=== PATIENT | female | born 1950 | race Caucasian/White ===

== ENCOUNTER 2018-02-24 07:05 | Day surgery (SDC) | payer OTHER ==
[~2018-02-24] VITALS: Ht 175.3 cm; Wt 97.1 kg
--- NOTE | ~2018-02-24 | OR ---
[facility] [address] [place], [place] [address] Draft DATE OF OPERATION: 02/24/2018 SURGEON: Rolando Cisse MD PREOPERATIVE DIAGNOSIS: Displaced left distal radius fracture. POSTOPERATIVE DIAGNOSIS: Displaced left distal radius fracture. PROCEDURE PERFORMED: Closed reduction and percutaneous pinning, left distal radius. SILK SCREEN OPERATOR: Gayle Bay PA-C. Gayle was present in critical positioning and arm holding during the pinning as well as cast application. ANESTHESIA: General. BLOOD LOSS: None. IMPLANTS: Four 1.6 mm K-wires. BRIEF HISTORY: Krystal is a 67-year-old female, who suffered a ground level fall. She had extensive swelling and was seen in the clinic and scheduled for surgery after discussion of risks and benefits. She was to get her arm elevated and get the swelling down, which she did quite nicely. Today once again, risks and benefits were discussed and she elected to proceed. DESCRIPTION OF PROCEDURE: Once consent was obtained, she was taken to the operating room. After adequate anesthesia, she was placed on operating table. All downside pressure points well padded. The arm was placed in well-padded proximal arm tourniquet and the arm was prepped and draped in the standard sterile fashion. Closed reduction was performed. PATIENT NAME: KRYSTAL RIGGS OPERATIVE REPORT DATE OF : 48 REPORT #: [id number] PHYSICIAN: ROLANDO CISSE MD PCP: NO PRIMARY CARE PHYSICIAN REPORT IS CONFIDENTIAL AND NOT TO BE RELEASED WITHOUT AUTHORIZATION [facility] [address] [place] [address] Draft Excellent reduction was obtained and was elected to go ahead and proceed with pinning rather than ORIF. The first pin was introduced from the distal radial styloid and advanced across the fracture engaging the body of the radius. Good purchase was obtained. Two pins were placed dorsally and two planes were placed radially, fixating the fracture quite nicely. The pins were bent and cut, and final radiograph showed good reduction and pin placement. Pin lengths were not too long. The pins were dressed with sterile gauze. Sterile cast padding. She was placed in a radial gutter splint with 10 degrees of flexion. She tolerated the procedure well. All sponge, needle, and instrument counts were correct. Rolando Cisse MD BA/JESUS /[id number] Copies: ~ PATIENT NAME: KRYSTAL RIGGS JANY OPERATIVE REPORT DATE OF : 48 REPORT #: [id number] PHYSICIAN: ROLANDO CISSE MD PCP: NO PRIMARY CARE PHYSICIAN REPORT IS CONFIDENTIAL AND NOT TO BE RELEASED WITHOUT AUTHORIZATION
[~2018-02-24 07:05] MED LIST: NORCO 5-325 TA1 EACH PO
[2018-02-24] MEDS ORDERED: HYDROCODON-ACE1 EA11 PO (09:43)
--- NOTE | 2018-02-24 10:26 | NUR ---
02/24/18 1026 Dinah Demarcozabeth 0941- PT ARRIVES TO PACU RESPONSIVE TO VOICE. DOES NOT FOLLOW COMMANDS. PT ON 6L VIA MASK. OXYGEN SAT HIGH 90'S TO 100% ON THIS. CMS INTACT. PT'S LEFT WRIST ELEVATED ON A PILLOW. 0945- PT REPORTS SHE IS IN 8/10 PAIN. PT REPORTS HER FINGERS ARE NUMB. AMANDA, KATE AT THE BEDSIDE PUTTING ORDERS IN FOR PAIN MANAGEMENT. OXYGEN TURNED OFF. OXYGEN SAT HIGH 90'S TO 100% ON RA. 0955- FENTANYL AND TORADOL PROVIDED TO PT FOR 8/10 PAIN. PT ANXIOUS AND HOLDING HER BREATH. EDUCATED PT TO TAKE DEEP BREATHS IN THROUGH HER NOSE AND OUT THROUGH HER MOUTH. PT IS ABLE TO FOLLOW THESE INSTRUCTIONS. 0958- VERSED 1MG GIVEN PT REMAINS ANXIOUS AND PAINFUL. PT FREQUENTLY MOANING AND REMINDED TO NOT HOLD HER BREATH. 1007- PT REPORTS HER PAIN IS NOT GETTING ANY BETTER. PT REMAINS ANXIOUS AND MOANING THAT SHE IS IN PAIN. REMINDED TO TAKE DEEP BREATHS. FENTANYL GIVEN. 1013- PT CONTINUOUS TO REPORT HER PAIN IS NOT GETTING BETTER. RATES HER PAIN A 9/10. 1 MG OF VERSED GIVEN. CMS REMAINS INTACT WITH THE EXCEPTION OF THE NUMBNESS TO HER FINGERS DUE TO THE BLOCK. 1019- PT CALM AT THIS TIME. OXYGEN SAT DROPPED TO 78% ON RA. PT RESPONSIVE TO VERBAL STIMULI AND INSTRUCTED TO TAKE DEEP BREATHS. OXYGEN APPLIED AT 6L VIA MASK. PT WAS ABLE TO FOLLOW INSTRUCTIONS AND OXYGEN SAT INCREASED TO THE HIGH 90'S. PT PLACED ON 2L VIA OXYMASK.
--- NOTE | 2018-02-24 10:56 | NUR ---
PATIENT ARRIVED FROM PACU. PATIENT INITIALLY ON 2L VIA MASK FOR 99% SATS. PATIENT CURRENTLY ON 1L FOR 98% SATS. PATIENT RATES LEFT WRIST PAIN 7/10, ENDORSES NUMBNESS TO WRIST AREA, TINGLING TO FINGERS, PATIENT CAN MOVE FINGERS, FINGERS ARE PINK AND WARM. PATIENT IS SLEEPY, WARM BLANKENT PROVIDED.
--- NOTE | 2018-02-24 11:36 | NUR ---
PATIENT ON ROOM AIR WITH 98% SATS. PATIENT IS SITTING UP AND EATING CRACKERS, SIPS OF WATER. PATIENT RATES 6/10 "DISCOMFORT" TO LEFT WRIST AND THIS IS HER BASELINE PAIN SCORE. PLAN TO HAVE PO INTAKE AND PO PAIN PILL. LEFT WRIST DRESSING IS CDI, CMS INTACT. PATIENT CALL SON TO GIVE HIM AN UPDATE.
--- NOTE | 2018-02-24 11:42 | NUR ---
MET WITH PT BEFORE SURGERY. NEW TO AREA AND INITIAL RIDE DID NOT SHOW. SON UNABLE TO GET OFF FROM WORK TO BE HERE-THIS UPSET PT SOME. LET HER VENT SOME, ASSURED HER THAT [facility] WOULD BE HERE FOR HER AND MAKE SURE SHE GOT HOME SAFELY. PT DID REQUEST PRAYER, AND THANKED ME FOR THE TIME. WILL FOLLOW NEEDED
--- NOTE | 2018-02-24 12:52 | NUR ---
PT HAS RETURNED FROM PACU-SHE HAS HAD JELLO AND CRACKERS AND HAS BEEN ABLE TO KEEP THEM DOWN. REASSURED HER NOT TO WORRY ABOUT GETTING HOME. IF HER RIDE IS UNABLE, [facility] WILL ARRANGE TRANSPORTATON. WILL CONTINUE TO FOLLOW NEEDED
--- NOTE | 2018-02-24 12:53 | NUR ---
PATIENT HAS TOLERATED PO INTAKE WELL, GIVEN ONE NORCO FOR 4/10 LEFT ARM PAIN. PATIENT DENIES NEED TO VOID AND INDICATES THAT SHE ONLY VOIDS 2-3 PER DAY ON THE USUAL. LEFT ARM DRESSING IS CDI. PLAN FOR PATIENT TO GO HOME AT APPROXIMATELY 2PM
--- NOTE | 2018-02-24 13:35 | NUR ---
PATIENT DRESSED, UP TO VOID, DENIES PAIN. RIGHT HAND IV D/C'D WITH CATHETER INTACT. LEFT ARM IN SLING.
--- NOTE | 2018-02-24 14:37 | NUR ---
1420 PATIENT GIVEN WHEELCHAIR RIDE TO FRONT DOOR. PATIENT PLACED SELF IN CAR AND FRIEND TRANSPORTING PATIENT HOME.
== END 2018-02-24 14:20 | disposition home or self-care (01) ==
LOC: DS 07:05
PROVIDERS: Specialist
PROC: 0PSJ34Z Reposition Left Radius with Internal Fixation Device, Percutaneous Approach (ICD-10-PCS; principal; 2018-02-24 08:15)
DX: S52.502A Unspecified fracture of the lower end of left radius, initial encounter for closed fracture (principal); Z88.0 Allergy status to penicillin
CPT/HCPCS: 01830; 64417; 73100; 76942; J0690; J1100; J1885; J2250; J2704; J2795; J3010; J7120

== ENCOUNTER 2021-08-11 10:17 | Emergency (ER) | payer MEDICARE ==
[~2021-08-11] VITALS: Ht 175.3 cm; Wt 97.1 kg
[~2021-08-11 10:17] MED LIST changes: +HYDROCODON-ACE1 EA11 PO
[2021-08-11] MEDS ORDERED: FUROSEMIDE20 MG PO (10:30)
[2021-08-11] MEDS ORDERED: URSODIOL300 MG PO (10:31)
[2021-08-11] MEDS ORDERED: BENZONATATE100 MG PO (10:31)
[2021-08-11] MEDS ORDERED: ONDANSETRON ODT8 MG PO (14:42)
[2021-08-11] MEDS ORDERED: FLOMAX0.4 MG PO (14:42)
[2021-08-11] MEDS ORDERED: HYDROCODON-ACE1 EA10 PO (14:42)
== END 2021-08-11 15:00 | disposition home or self-care (01) ==
LOC: ED 10:17
DX: N13.2 Hydronephrosis with renal and ureteral calculous obstruction (principal); Z88.0 Allergy status to penicillin; Z79.899 Other long term (current) drug therapy
CPT/HCPCS: 74176; 81001; 99284-25

== ENCOUNTER 2022-06-18 06:45 | Inpatient (IN) | payer MEDICARE ==
[~2022-06-18] VITALS: Ht 175.3 cm; Wt 99.1 kg
[~2022-06-18 06:45] MED LIST changes: +BENZONATATE100 MG PO; +CITRACAL-D3 MA1 EACH PO; +FLOMAX0.4 MG PO; +FUROSEMIDE20 MG PO; +HYDROCODON-ACE1 EA10 PO; +ONDANSETRON ODT8 MG PO; +ONE DAILY WITH1 EACH PO; +URSODIOL300 MG PO
[2022-06-18] MEDS ORDERED: CELEBREX200 MG PO (07:06)
[2022-06-18] MEDS ORDERED: OXYCODONE HCL5 MG PO (10:24)
[2022-06-18] MEDS ORDERED: TRAMADOL HCL50 MG PO (10:24)
[2022-06-18] MEDS ORDERED: GABAPENTIN300 MG PO (10:24)
[2022-06-18] MEDS ORDERED: XARELTO10 MG PO (10:24)
[2022-06-18] MEDS ORDERED: HEALTHYLAX17 GM PO (10:25)
--- NOTE | 2022-06-18 10:42 | NUR ---
06/18/22 1042 Peg Demarco 1033- PT ARRIVES TO PACU EASILY AROUSABLE TO VOICE. PT REPORTS HER THROAT IS SORE. DENIES NAUSEA. RESP EVEN AND UNLABORED. OXYGEN SAT HIGH 90'S TO 100% ON 6L VIA MASK. 1038- PT IS WANTING TO BEND HER RIGHT KNEE SHE IS REPORTING PAIN BEHIND HER KNEE AND CALF. DR. TAYLOR DOES NOT WANT THE PT PUTTING A BEND IN HER KNEE. 1040- CLAY HOUSE WORKER AT THE BEDSIDE TALKING WITH THE PT. 1041- PT SIPPING ON ICE WATER. PT REPORTS THIS HELPS HER THROAT SORENESS.
--- NOTE | 2022-06-18 11:35 | NUR ---
PT BACK TO DS ROOM, AWAKE AND ALERT DENIES PAIN AND NAUSEA. SPINAL AT KNEE LEVEL. CRYO CUFF TO RT KNEE. WARM BLANKETS GIVEN CALL LIGHT WITHIN REACH. ON Q PUMP PATENT.
--- NOTE | 2022-06-18 12:22 | NUR ---
PT REPORTS PAIN TO BACK OF RT KNEE / SHE STATES ITS VERY UNCOMFORTABLE AND WOULD LIKE PAIN MEDS FOR IT. ULTRAM GIVEN.
--- NOTE | 2022-06-18 13:27 | NUR ---
PT SATS DROPPED TO 85% WHEN SHE FELL ASLEEP. O2 PLACED VIA NASAL CANNULA AT 2L
--- NOTE | 2022-06-18 13:49 | NUR ---
PT SLEEPING SOUNDLY, DROPPED O2 TO 1L, SATS AT MAINTAINING 96%
--- NOTE | 2022-06-18 14:07 | NUR ---
PT AWAKE AND ALERT O2 TURNED OFF SATS MAINTAINED AT 96% ON ROOM AIR.
--- NOTE | 2022-06-18 14:33 | NUR ---
PT SAT AT EDGE OF BED WITH FEET DANGLING. DENIES PAIN. SHE REPORTS SHE FEELS "WHOOZY" WITH MILD NAUSEA. HELPED HER BACK TO LAYING DOWN POSITION. REPORTS "WHOOZY" IS GOING AWAY.
--- NOTE | 2022-06-18 15:25 | NUR ---
1515 NANETTE FROM PHYSICAL THERAPY HERE TO WORK WITH PT, SAT PT AT EDGE OF BED WITH FEET DANGLING PT REPORTS SHE IS "WHOOZY" AGAIN AND FEELS NAUSEOUS. CALLED DR TAYLOR HE ORDERED ZOFRAN ODT 8MG GIVEN TO PT, NANETTE HELPED BACK INTO BED. PT REPORTS SHE IS SEEING VIVID BRIGHT COLORS WHEN SHE CLOSES HER EYES.
--- NOTE | 2022-06-18 15:48 | NUR ---
PT SATS DROPPED TO 87% ON ROOM AIR. O2 ON 2L VIA NASAL CANNULA.
--- NOTE | 2022-06-18 15:52 | NUR ---
PT REPORT NAUSEA IS MUCH BETTER BUT SHE IS HAVING TROUBLE KEEPING HER EYS OPEN. DENIES PAIN.
--- NOTE | 2022-06-18 16:05 | NUR ---
SPOKE WITH DR TAYLOR TO NOTIFY HIM OF PT BEING TO SLEEPY TO KEEP EYES AND PT NEEDING 2L OF O2 TO KEEP SATS UP. HE ADVISED TO HOLD GABAPENTINE, AND TO CALL HIM IF SHE WAS GOING TO BE ADMITTED.
--- NOTE | 2022-06-18 16:45 | NUR ---
1630 HARLEY PHYSICAL THERAPIST IN ROOM, PT MORE AWAKE CONTINUE TO COMPLAIN OF FEELING WHOOZY AND LIGHT HEADED. IV SALINE LOCKED, 2000ML OF FLUID TOTAL GIVEN TODAY. 800ML GIVEN IN DAYSURGERY. HARLEY HELPED PT DRESS, PT WAS ABLE TO WALK TO WHEELCHAIR OUTSIDE HER ROOM, SAT IN WHEELCHAIR REPORTS FEELING NAUSEOUS, SHE VOMITED 200ML OF RED COLORED FLUID SHE ATE RED JELLO EARLIER TODAY. SHE REPORTS FEELING A LITTLE BETTER AFTER VOMITING. HARLEY TOOK HER FOR PHYSICAL THERAPY.
--- NOTE | 2022-06-18 17:42 | NUR ---
1700 MYRNA REPORTS THAT SHE DID NOT PASS PHYSICAL THERAPY, SHE IS NOT STEADY ENOUGH TO STAND OR WALK ON HER OWN, SHE WAS ABLE TO VOID ABOUT 100ML OF CLEAR YELLOW URINE. PT DRY HEAVING WHILE TUCKING HER BACK INTO BED. CALLED DR TAYLOR TO INFORM HIM HE GAVE ZOFRAN ORDERS 4MG Q8HRS.
--- NOTE | 2022-06-18 18:03 | NUR ---
PT HAD ANOTHER DRY HEAVING EPISODE DID NOT BRING ANYTHING UP. SHE REPORTS HE IS VERY DIZZY AND TIRED. SHE IS STILL HAVING TROUBLE KEEPING HER EYES.
--- NOTE | 2022-06-18 19:01 | NUR ---
DR TAYLOR AT BEDSIDE PT AWAKE AND ALERT DENIES PAIN AND NAUSE,,
--- NOTE | 2022-06-18 19:16 | NUR ---
1900 O2 PLACED BACK ON PT PER DR TAYLOR, HER SATS CONTINUE TO DROP WHEN SHE FALLS ASLEEP.
--- NOTE | 2022-06-18 20:05 | NUR ---
PT TRANSFERED TO MED SURG
--- NOTE | 2022-06-18 20:21 | NUR ---
0815 PT TRANSFERED TO MED SURG AWAKE AND ALERT, ORIENTED X4. SHE DENIES PAIN OR NAUSEA. PT WAS ABLE TO TRANSFER TO MED SURG BED WITH MINIMAL ASSIST. REPORT GIVEN TO TATIANA HAN.
--- NOTE | 2022-06-18 21:18 | NUR ---
pt ARRIVES TO MS FLOOR VIA STRETCHER. ABLE TO MOVE SELF TO HOSPITAL BED. SURGERY RN WITH pt. BEDSIDE REPORT RECEIVED FROM GUILLE GIL. pt DENIES ANY PAIN. CLARICE HOSE, VFPs, CRYO CUFF IN PLACE ON RIGHT KNEE. DRESSING CDI. RIGHT LEG EDEMETOUS. SCHEDULED MEDICATIONS ADMINISTERED WNL. pt DENIES NAUSEA. TOLERATING CRACKERS, WATER, SPRITE. SANDWICH BOX PROVIDED REQUESTED. ASSESSMENT COMPLETE. CALL LIGHT IN REACH. BED ALARM ON. pt IS ALERT AND ORIENTED TO ALL, CONTINUES TO FEEL LIKE THINGS ARE MOVING IN ROOM, HEAD IS "FEELING FUZZY". DENIES NEED TO VOID.
--- NOTE | 2022-06-18 22:30 | NUR ---
CALL LIGHT ANSWERED. pt C/O PAIN AT IV SITE. IV FLUSHED, PAINFUL. D/C'D WNL. TWO ATTEMPTS AT NEW IV START BY THIS RN, SEALER OPERATOR RN IN, IV PLACED IN RIGHT AC, 20 GAUGE. IV SITE FLUSHES WNL, BRISK BLOOD RETURN. CALL LIGHT IN REACH. pt CONTINUES TO DENY TOILETING NEEDS. PO FLUIDS ENCOURAGED. BED ALARM ON.
--- NOTE | 2022-06-19 00:15 | NUR ---
pt SLEEPING, AWAKENS TO VOICE. 2PA WITH FWW TO PIVOT TO BSC FOR VOID. pt LOSES BALANCE BRIEFLY WHEN ATTEMPTING TO PULL DOWN UNDERWEAR, QUICK, IMPULSIVE WITH MOVEMENTS. pt ABLE TO FOLLOW COMMANDS. UNABLE TO VOID. BACK IN BED, TRANSFERS SELF INTO HOSPITAL BED. BLADDER SCAN FOR 365 MLS. pt DRINKING WATER AT THIS TIME. IVF INFUSING WNL. pt DOES NOT FEEL URGE TO VOID. CALL LIGHT IN REACH. BED ALARM ON.
--- NOTE | 2022-06-19 03:40 | NUR ---
pt SLEEPING, AWAKENS TO VOICE. SCHEDULED MEDICATIONS ADMINISTERED. pt DENIES PAIN. STATES URGE TO VOID. 2PA TO PIVOT WITH FWW TO BSC, pt UNABLE TO VOID. BACK IN BED. BLADDER SCAN 558 MLS. ASSESSMENT COMPLETE. VSS. pt IS ALERT, DENIES ANY "DIZZINESS". ATTEMPT TO CALL MD, MESSAGE LEFT ON CELL PHONE. CALL LIGHT IN REACH. pt ENCOURAGED TO DRINK WATER. ABLE TO FINISH 225 MLS AT THIS TIME.
--- NOTE | 2022-06-19 05:11 | NUR ---
PHONE CALL FROM MD, TELEPHONE ORDERS TO NOTIFY IF >1000 MLS IN BLADDER. NO ADDITIONAL ORDERS.
--- NOTE | 2022-06-19 06:12 | NUR ---
CALL LIGHT ANSWERED. 2PA WITH GAIT BELT. pt ABLE TO VOID 200 ML CONCENTRATED URINE. pt REQUIRING DIRECTION FOR SAFE AMBULATION, GETTING UP AND DOWN OFF BSC. BACK IN BED. PO FLUIDS PROVIDED. IVF INFUSING WNL. CRYO CUFF IN PLACE. FOOT PUMPS ON. CALL LIGHT AND PERSONAL SUPPLIES IN REACH.
--- NOTE | 2022-06-19 07:30 | NUR ---
THIS RN ROUNDING WITH ORTHO PA AT BEDSIDE. PT STATES UNDERSTANDING OF POC TO ACHIEVE DC CRITIERA AND DC HOME TODAY. PT STATES SHE HAS BEEN URINATING AND EATING WITHOUT DIFFICULTY, PAIN RATING 0/10.
--- NOTE | 2022-06-19 09:15 | NUR ---
SCHEDULED MEDS ADMINISTERED. PT SITTING ON EDGE OF BED WORKING WITH PT. 100% OF BREAKFAST EATEN.
--- NOTE | 2022-06-19 09:50 | NUR ---
PT TRANSFERED FROM CHAIR TO SIDE OF BED WITH RN AND LEAD SOLUTIONS ARCHITECT AT BEDSIDE. CYRO CUFF FILLED AND PLACED ON KNEE. PT TALKING TO FAMILY ON PHONE AND UPDATED. DRESSING CDI AND PT REPORTS 1/10 PAIN ON KNEE CAP. CALL LIGHT AND BEDSIDE TABLE WITHIN REACH. PT DENIES CONCERNS, PT SITTING ON EDGE OF BED.
--- NOTE | 2022-06-19 10:33 | NUR ---
MED REC COMPLETE
--- NOTE | 2022-06-19 11:00 | NUR ---
THIS RN UPDATED BY PROPELLER DRIVEN AIRPLANE MECHANIC THAT XRAY OF SURGICAL SITE INDICATES DISLOCATION AND ORTHO PA WILL ASSESS PT AT BEDSIDE FOR REDUCTION. EMPLOYMENT CASE MANAGER UPDATED. PT STILL REPORTS NO INCREASING PAIN, CRYO CUFF ON SITE. SCDS IN PLACE.
--- NOTE | 2022-06-19 11:26 | NUR ---
THIS RN ANSWERS CALL LIGHT TO FIND PT ON FLOOR WITH PHYSICAL THERAPY HARLEY STANDING NEXT TO PT. HARLEY REPORTS PT R KNEE KNEE "BUCKLED" WHEN AMBULATING WITH FWW. PT LIFTED FROM FLOOR USING GAIT BELT WITH PROM BURN OFF OPERATOR AND PT HELP. PT DENIES INCREASED PAIN OR INJURY. ASSESSMENT BENIGN FOR INJURY - R KNEE BANDAGE UNCHANGED FROM PREVIOUS AM ASSESSMENT. POST FALL VS OBTAINED, WNL. PT WEARING HOSPITAL PROVIDED NON SLIP SOCKS, ALL FALL PREVENTION STRATAGIES ALREADY IMPLOYED BEFORE FALL. HARLEY FURTHER EVALUATES PT IN PT ROOM VIA WHEELCHAIR TRANSPORT. LICENSED MARRIAGE AND FAMILY THERAPIST NOTIFIED. HARLEY TO NOTIFY ORTHO PA BY PHONE.
--- NOTE | 2022-06-19 12:18 | NUR ---
RN ROUNDING WITH ORTHO PA - PT UPDATED ON POC TO RETURN TO OR TOMORROW TO CORRECT KNEE CAP DISPLACEMENT. PT DENIES QUESTIONS AT THIS TIME. PT EATING LUNCH WITH GOOD APPETITE.
--- NOTE | 2022-06-19 13:00 | NUR ---
Received call from Gayle Lassiter Pt will return to surgery for dislocated patella. Pt will be hospitalized 2-3 more days and will need a SNF on dc as she will be nwb. Chart faxed to [facility].
--- NOTE | 2022-06-19 13:37 | NUR ---
PT ALERT, ORIENTED AND SITTING UP IN BED WATCHING TV. PT SEEMED PLEASED I STOPPED. NEEDED TO TALK, FEELING GUILTY THAT SHE NEEDS TO RELY ON HELP. PT HAD HOPED FAMILY WOULD BE AVAILABLE. SHE ALSO SHARED ABOUT CONCERN FROM A FALL FOLLOWING SURGERY AND WAITING FOR X-RAY RESULTS. GAVE PT ENCOURAGEMENT ALSO PROVIDED RESOURCES ON DEALING WITH GRIEF AND LOSS. PTS' LUNCH DELIVERED AND GAVE BLESSING. WILL FOLLOW
--- NOTE | 2022-06-19 14:11 | NUR ---
WATCHING TV.PATIENT STATES THE PLAN OF CARE IS TO GO TO [facility] FOR REHAB AND TO RETURN HOME WHEN READY FOR DISCHARGE.
--- NOTE | 2022-06-19 14:13 | NUR ---
rn rounding on pt - sitting up in bed talking on phone with friend at bedside.
--- NOTE | 2022-06-19 17:22 | NUR ---
Rn in room to administer schedule meds - pt resting in bed with friend at side. Assessment complete - no changes. Surgical site remains unchanged with no new drainage on bandage, cryo cuff in place.
--- NOTE | 2022-06-19 17:56 | NUR ---
PATIENT SITTING UP IN BED. VITALS AND I&O'S CHARTED. CRYO FILLED. CALL LIGHT IN REACH. NO FURTHER NEEDS AT THIS TIME.
--- NOTE | 2022-06-19 18:37 | NUR ---
RN IN ROOM TO ADMINISTER SCHEDULED MEDICATIONS. PT RESTING IN BED VISITING WITH MACHINE SHORTHAND TEACHER. PT DENIES NEEDS AT THIS TIME. DENIES PAIN. CALL LIGHT IN REACH.
--- NOTE | 2022-06-19 19:05 | NUR ---
RECEIVED REPORT FROM ARIELLA HAN. PT RESTING IN BED AND REPORTS PAIN 1/10 AT THIS TIME. CRYO WRAP IN PLACE ON RT KNEE. RAMIRO WRAP IN PLACE OVER DRESSING WHICH HAS SMALL AMOUNT OF OLD SS SHADOWING. SWELLING AND SLIGHT REDNESS PRESENT BUT NO CHANGE PER DAY SHIFT GUILLE KRISHNAN. FOOT SCD'S IN PLACE. PUREWICK IN PLACE. CALL LIGHT WITHIN REACH, NO FURTHER NEEDS AT THIS TIME.
--- NOTE | 2022-06-19 20:15 | NUR ---
IN PT ROOM FOR SLUDGE FILTRATION ATTENDANT, ASSESSMENT, AND VS. VSS. PT REPORTS PAIN 1/10 AT THIS TIME. INCISION SITE DRESSING HAS SMALL AMOUNT OF SS DRAINAGE THAT IS OLD SHADOWING. THERE IS SOME SWELLING AND WARMTH ON THE LFT SIDE OF THE KNEE THAT PER ARIELLA IS UNCHANGED FROM PREVIOUS ASSESSMENT. PT REPORTS NO NAUSEA, N/T, DIZZINESS, OR SOB AT THIS TIME. PT IS ON BEDREST, PUREWICK IN PLACE AND SUCTIONING APPROPRIATELY. GOWN PROVIDED AND PERSONAL SHIRT NOW IN GREEN BAG IN CLOSET. FEET SCD'S IN PLACE. RAMIRO WRAP AND CRYO WRAP IN PLACE ON RT KNEE. CALL LIGHT WITHIN REACH, NO FURTHER NEEDS AT THIS TIME. PT WILL BE NPO AT MIDNIGHT, PT IS AWARE OF THIS AND UNDERSTANDS PLAN OF CARE AT THIS TIME.
--- NOTE | 2022-06-19 22:00 | NUR ---
PT REPORTS PAIN 2/10 IN RT KNEE AND REQUESTS PRN PAIN MEDICATION. PRN OXY GIVEN AT THIS TIME (SEE EMAR). PT REPORTS NO NAUSEA OR N/T. WARM BLANKET PROVIDED. CALL LIGHT WITHIN REACH, NO FURTHER NEEDS.
--- NOTE | 2022-06-19 23:47 | NUR ---
IN PT ROOM TO REMOVE LIQUIDS D/T NPO STATUS. PT IS RESTING W/EYES CLOSED. RESPIRATIONS ARE EVEN AND UNLABORED, NO SIGNS OF DISTRESS. CALL LIGHT WITHIN REACH. IV FLUIDS RUNNING DIRECTED. CRYO WRAP RUNNING DIRECTED.
--- NOTE | 2022-06-20 01:37 | NUR ---
PT RESTING W/EYES CLOSED. RESPIRATIONS ARE EVEN AND UNLABORED, NO SIGNS OF DISTRESS. CALL LIGHT WITHIN REACH.
--- NOTE | 2022-06-20 02:27 | NUR ---
PT RESTING W/EYES CLOSED. RESPIRATIONS ARE EVEN AND UNLABORED, NO SIGNS OF DISTRESS. CALL LIGHT WITHIN REACH.
--- NOTE | 2022-06-20 03:24 | NUR ---
PT RESTING W/EYES CLOSED. RESPIRATIONS ARE EVEN AND UNLABORED, NO SIGNS OF DISTRESS. CALL LIGHT WITHIN REACH. HEELS ELEVATED, FOOT SCD'S IN PLACE, CRYO WRAP IN PLACE, PT APPEARS COMFORTABLE AT THIS TIME. IV FLUIDS INFUSING DIRECTED.
--- NOTE | 2022-06-20 03:58 | NUR ---
PT RESTING IN BED W/EYES CLOSED. RESPIRATIONS ARE EVEN AND UNLABORED, NO SIGNS OF DISTRESS. PT APPEARS COMFORTABLE AT THIS TIME. CALL LIGHT WITHIN REACH.
--- NOTE | 2022-06-20 05:07 | NUR ---
PT RESTING W/EYES CLOSED. RESPIRATIONS ARE EVEN AND UNLABORED, NO SIGNS OF DISTRESS. CALL LIGHT WITHIN REACH. IV FLUIDS INFUSING DIRECTED. PT APPEARS COMFORTABLE AT THIS TIME.
--- NOTE | 2022-06-20 06:07 | NUR ---
IN PT ROOM FOR ASSESSMENT, VS, I/O'S. NO NEW SHADOWING ON DRESSING FOR KNEE INCISION. ABD PAD W/RAMIRO WRAP IN PLACE. CRYO WRAP REFILLED W/FRESH ICE AND IN PLACE ON RT KNEE. THERE IS SWELLING ON BOTH SIDES OF THE KNEE AND WARMTH TO LFT SIDE OF RT KNEE. PT REPORTS PAIN THIS MORNING AT 0/10 AND NO NAUSEA, N/T, DIZZINESS OR SOB. NO ACUTE CHANGES FROM PREVIOUS ASSESSMENT. IV FLUIDS INFUSING DIRECTED, IV SITE WNL. PT IS A&O X4. ON-Q PUMP INTACT. CONSENT SIGNED, THIS RN WITNESS, LR W/STRAIGHT TUBING IN ROOM, PRE-OP WIPE DOWN W/NEW GOWN DONE, NEW PUREWICK IN PLACE W/NEW DEPENDS (MARCELO CARE PERFORMED). WARM BLANKET PROVIDED, MOUTH SWABS PROVIDED, CALL LIGHT WITHIN REACH, NO FURTHER NEEDS AT THIS TIME.
--- NOTE | 2022-06-20 07:00 | NUR ---
report from Valerie angeles, pt resting in bed, npo, lr@85 - surgery tubing at side watiting. purewick in place attends cdi. denies pain, call light in reach.
--- NOTE | 2022-06-20 07:05 | OR ---
[facility] [address] [place], [place] [address] Signed DATE OF OPERATION: 06/18/2022 SURGEON: Rolando Cisse MD PREOPERATIVE DIAGNOSES: Severe knee degenerative joint disease, right. POSTOPERATIVE DIAGNOSIS: PROCEDURE PERFORMED: Right total knee arthroplasty with José. EMBROIDERER: Gayle Bay PA-C. Gayle was present and critical for all portions of procedure. ANESTHESIA: Spinal. BLOOD LOSS: 175 mL. TOURNIQUET TIME: Zero. IMPLANTS: Aspen Triathlon size 410 mm polyethylene and of 32 mm patella. BRIEF HISTORY: Krystal is a 72-year-old female with progressive worsening of osteoarthritis in the lateral compartment and patellofemoral compartments. Medial compartments are relatively well preserved. Risks and benefits of operative treatment discussed with her and she elected to proceed. DESCRIPTION OF PROCEDURE: Once consent was obtained, she was taken to the operating room. After adequate anesthesia, she was placed on the operating table with the hip bump. The right leg was prepped and draped in a standard sterile fashion. Standard anterior approach used through the skin and subcutaneous tissue. The mid vastus approach was taken through the arthrotomy. The MCL was elevated as a sleeve around the posteromedial corner. The Electronically Signed By: ROLANDO CISSE MD 06/20/22 0705 PATIENT NAME: KRYSTAL RIGGS JANY OPERATIVE REPORT DATE OF : 48 REPORT #: [id number] PHYSICIAN: ROLANDO CISSE MD PCP: REYNA ESCOBEDO MD REPORT IS CONFIDENTIAL AND NOT TO BE RELEASED WITHOUT AUTHORIZATION [facility] [address] [place], [place] [address] Signed infrapatellar fat pad was excised. The anterior horns of the menisci were transected as was the ACL. The PCL was found to be relatively intact. The José ray was then placed in the medial femoral condyle along with checkpoint. Checkpoints placed in the proximal tibia and the two pins for the José ray and the tibia were placed percutaneously. The leg was then registered with the computer as were the fine intoeing points of the knee. Varus-valgus testing showed relatively equal ligament balancing. The robot was then brought in the four straight cuts were made along with the 2 angle cuts with care taken to protect the patellar tendon and MCL. The bone remnants were removed as were remaining osteophytes. The trials were then positioned after removing osteophytes off the posterior femur. The 9 mm was a little loose and the 10 fit better. The patella was cut sized and drilled for 32 mm patella. The proximal tibia was finished using the keel punch. The distal femur was drilled with the pegs. The bone was quite soft, so we elected to go with the cemented prosthesis. The cement was mixed. Once it reached proper consistency, it was placed on the tibial and patellar bone surfaces along with the implants. The femur was a bone ingrowth. The bone was cleaned with pulse lavaged packed with dry Ray-Mae prior to that. The tibia was impacted into position first, followed by removal of the excess cement. The polyethylene was snapped into position. The femur was impacted. The knee was extended and nicely loaded. The patella was clamped, any remaining overflow was removed. The cement was allowed to harden for 12 minutes and the knee was flexed and remaining cement was removed. The knee was pulse lavaged with 3 L normal saline throughout the procedure. Intercept soak was done at the end. The periarticular soft tissues were injected with ropivacaine and Toradol mixture. The On-Q pain pump was percutaneously placed in the adductor canal from the suprapatellar pouch. The arthrotomy was then closed using #2 StrataFix, subcutaneous tissue with 0 #Quill and skin with 3-0 StrataFix. The wound was sealed with LiquiBand and dressed with an echo seven dressing. The ABD and Alvarez wrap were placed over this and she was taken to the recovery room in satisfactory condition. All sponge, needle, and instrument counts were correct. Rolando Cisse MD BA/MODL /[id number] Electronically Signed By: ROLANDO CISSE MD 06/20/22 0705 PATIENT NAME: KRYSTAL RIGGS OPERATIVE REPORT DATE OF : 48 REPORT #: [id number] PHYSICIAN: ROLANDO CISSE MD PCP: REYNA ESCOBEDO MD REPORT IS CONFIDENTIAL AND NOT TO BE RELEASED WITHOUT AUTHORIZATION [facility] [address] [place] [address] [place] [address] Signed Copies: ~ Electronically Signed By: ROLANDO CISSE MD 06/20/22 0705 PATIENT NAME: KRYSTAL RIGGS JANY OPERATIVE REPORT DATE OF : 48 REPORT #: [id number] PHYSICIAN: ROLANDO CISSE MD PCP: REYNA ESCOBEDO MD REPORT IS CONFIDENTIAL AND NOT TO BE RELEASED WITHOUT AUTHORIZATION
--- NOTE | 2022-06-20 08:17 | NUR ---
PT WENT TO SURGERY VIA BED. CRYO CUFF, TXA, ABX AND STRAIT TUBING SENT WITH GUILLE COWART.
--- NOTE | 2022-06-20 10:26 | NUR ---
06/20/22 Daly6 Rosina Huynh 1019-PATIENT ARRIVED TO PACU ON 6L MASK RR EVEN PATIENT REACTIVE TO VERBAL STIMULI OPENING EYES DENIES PAIN OR NAUSEA. REMAINS VERY DROWSY. IVF INFUSING. SR. DRESSING TO RIGHT KNEE CDI PALPABLE PEDAL PULSE GOOD CAP REFILL AND WARMTH. PATIENT ABLE TO WIGGLE TOES AND REPORTS "FEELS PRESSURE WHEN FEEL THE FOOT" WILL PLACE CRYO CUFF.
--- NOTE | 2022-06-20 11:40 | NUR ---
PT RETURNED FROM SURGERY VIA BED, PT TURNED WITH PHOTOGRAPHER APPRENTICE TO REMOVE SURGERY SHEETS AND CHUX FROM PACU WHERE PT USED BEDPAN TO URINATE. CLEAN ATTENDS PLACED PT IS ALERT AND ORIENTED, CPOX AT BEDSIDE 97% RA, PAIN IS 2/10 RIGHT LEG WITH ON Q PUMP WNL - WIGGLES BILATERAL TOES AND DRSG IS CDI TO R LEG. CALL LIGHT IN REACH, VITALS DONE, SCD'S AND TEDS ON.
--- NOTE | 2022-06-20 12:58 | NUR ---
PT TAKEN TO OR FOR SURGERY. WILL FOLLOW
--- NOTE | 2022-06-20 13:50 | NUR ---
pt eating in bed, on phone- gives rn thumbs up. call light in reach.
--- NOTE | 2022-06-20 14:16 | EKG ---
[facility] [address] [place] [address] Signed Normal sinus rhythm Normal ECG When compared with ECG of 19-FEB-2018 13:41, No significant change was found Confirmed by DIANA JAY MD ([id number]) on 06/20/2022 2:15:58 PM Electronically Signed By: DIANA JAY MD 06/20/22 1416 PATIENT NAME: ROJAS RIGGS JANY Electrocardiogram DATE OF : 48 PHYSICIAN: DIANA JAY MD REPORT #: [id number] REPORT IS CONFIDENTIAL AND NOT TO BE RELEASED WITHOUT AUTHORIZATION
--- NOTE | 2022-06-20 14:39 | NUR ---
PATIENT AWAKE REPORTS "PAIN BETTER" GIVES THUMBS UP. ATE 100% OF LUNCH. DENIES NEEDING ANYTHING. CALL LIGHT WITHIN REACH.
--- NOTE | 2022-06-20 15:27 | NUR ---
pt attends changed inc lg amt of urine, rodriguez care done, pt turned side to side well. pt requested purewick and it was placed - checked with charge coordinator and staff - pt previously had one and it was replaced and change clock to door. pt reports feeling better and eating a good meal regular diet.
--- NOTE | 2022-06-20 15:58 | NUR ---
PT IN GOOD SPIRITS, TALKATIVE, RADHA WNL - CMS WNL - PO MEDS GIVEN / PAIN RIGHT LEG
--- NOTE | 2022-06-20 17:46 | NUR ---
Pt sitting up in bed eating dinner at this time
--- NOTE | 2022-06-20 19:11 | NUR ---
CHECKED PT PUREWICK, WILL NEED CHANGED @ 1999, PASSED ON TO N[employer] SKILLS SPECIALIST. CRYO CHANGED, FILLED W/ICE. NO OTHER NEEDS AT THIS TIME. CALL LIGHT IN REACH.
--- NOTE | 2022-06-20 19:15 | NUR ---
RECEIVED REPORT FROM LAURIE HAN. PT RESTING IN BED. REPORTS PAIN 4/10 IN RT LEG. DRESSING ON RT LEG IS C/D/I, CRYO WRAP IN PLACE. PT IS SALINE LOCKED, IV SITE WNL. PT REPORTS NO NAUSEA AT THIS TIME. CALL LIGHT WITHIN REACH.
--- NOTE | 2022-06-20 23:39 | NUR ---
IN PT ROOM D/T PAIN OF 10/15, PT REQUESTS PRN PAIN MEDICATION. TITRATED OXY UP TO 10 MG W/ADDITIONAL DOSE OF 5 MG OF OXY, VERIFIED BY DARREN HAN. WASH CLOTH PLACED IN BETWEEN DEPENDS AND LEG INCISION DRESSING TO PREVENT ANY POSSIBLE SATURATION. SHADES PUT DOWN, CALL LIGHT WITHIN REACH, NO FURTHER NEEDS AT THIS TIME.
--- NOTE | 2022-06-21 01:26 | NUR ---
PT RESTING W/EYES CLOSED. RESPIRATIONS ARE EVEN AND UNLABORED, NO SIGNS OF DISTRESS. CALL LIGHT WITHIN REACH.
--- NOTE | 2022-06-21 02:25 | NUR ---
PT RESTING W/EYES CLOSED. RESPIRATIONS ARE EVEN AND UNLABORED, NO SIGNS OF DISTRESS. CALL LIGHT WITHIN REACH.
--- NOTE | 2022-06-21 02:36 | NUR ---
IN PT ROOM FOR VS AND ASSESSMENT. VSS. NEW ICE PLACED IN CRYO WRAP DEVICE. DRESSING REMAINS C/D/I. PT REPORTS PAIN 0/10 AT THIS TIME. NO NAUSEA, N/T, DIZZINESS, SOB AT THIS TIME PER PT. NO ACUTE CHANGES FROM PREVIOUS ASSESSMENT. PT USED IS X3 W/DEIRDRE RN IN ROOM UP TO 1750. PT DEPENDS DRY AT THIS TIME, PUREWICK IN PLACE. BARRIER TOWEL IN PLACE TO KEEP DRESSING C/D/I FROM URINE. PT ABLE TO WIGGLE TOES W/OUT DIFFICULTY. CALL LIGHT WITHIN REACH, NO FURTHER NEEDS AT THIS TIME.
--- NOTE | 2022-06-21 04:01 | NUR ---
PT RESTING W/EYES CLOSED. RESPIRATIONS ARE EVEN AND UNLABORED, NO SIGNS OF DISTRESS. CALL LIGHT WITHIN REACH.
--- NOTE | 2022-06-21 05:32 | NUR ---
PT RESTING IN BED W/EYES CLOSED. RESPIRATIONS ARE EVEN AND UNLABORED, NO SIGNS OF DISTRESS. CALL LIGHT WITHIN REACH.
--- NOTE | 2022-06-21 07:53 | NUR ---
report from sukhjinedr angeles, pt had good night, purewick was changed and sl wnl. pt in bed resting. call light in reach - this rn visited with Akhil Provider and Antonietta Martinez case managment about plan of care and dc to [facility] saturday? start pt/ot today and stool softner as needed.
--- NOTE | 2022-06-21 10:34 | NUR ---
PT WORKING WITH PT AT THIS TIME.
--- NOTE | 2022-06-21 11:00 | NUR ---
Spoke with pt and she plans on dc to [facility] on Saturday. She is sitting in a recliner at this time. Gave pt coloring pages and color pencils. Pt discussing dc and states she will go in her night gown and just use this while at [facility]. Let her know, Gayle Albert from the office stopped and expressed pt needs to plan on going as a therapy pt. She needs to be dressed in clothing daily, not a night gown. They want pt to think of herself as a therapy pt and not a sick pt. Pt states she will ask friends to bring her clothing and will look at her SNF stay as therapy.
--- NOTE | 2022-06-21 13:45 | NUR ---
trsf pt from chair to bsc with fww and 2 person assist - pt need a lot of direction on encouragement. Pt was inc of urine in attned then was able to void well at bsc. pt was cleaned, new attends placed and then pivot trsf. with fww and 2 person assist to bed. ice changed in cryo cuff - drsg cdi, on q pump wnl - and pt encouraged by her success! po pain meds given and friend at bedside to visit. call light in reach and pt smiles!
--- NOTE | 2022-06-21 14:00 | NUR ---
In and spoke with pt and he states he feels he is well enough to go home. He denies any needs and plans on dc home with . 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
--- NOTE | 2022-06-21 15:32 | NUR ---
PT OWN MED FOR LIVER GIVEN TO ENRICO IN PHARMACY, PT HAPPY THAT SHE IS ABLE TO TAKE IT WITH DINNER TONIGHT. PT EXCITED ABOUT PROGRESS - TALKATIVE. CALL LIGHT IN REACH - DENIES PAIN OR NEED FOR MEDS.
--- NOTE | 2022-06-21 17:00 | NUR ---
REPORT RECEIVED. PT WITH NO NEEDS OR CONCERNS AT THIS TIME. CALL LIGHT IN REACH.
--- NOTE | 2022-06-21 19:00 | NUR ---
RECEIVED REPORT FROM YOVANI HAN. PT RESTING IN BED A&O X4. PT REPORTS PAIN 3/10 AND TOLERABLE W/OUT NEED FOR PRN MEDICATION AT THIS TIME. PT REPORTS NO NAUSEA AT THIS TIME. FLIGHT COMMUNICATIONS OPERATOR IN ROOM FOR VS, I/O'S, AND PUREWICK PLACEMENT. CALL LIGHT WITHIN REACH, NO FURTHER NEEDS AT THIS TIME.
--- NOTE | 2022-06-21 19:55 | NUR ---
IN PT ROOM FOR OLD COIN DEALER AND ASSESSMENT. PT REPORTS PAIN 4/10 AT THIS TIME, PRN OXY GIVEN (SEE EMAR). PT REPORTS NO N/T, DIZZINESS, SOB, OR NAUSEA AT THIS TIME. PULSES PRESENT THROUGHOUT, LUNGS CLEAR THROUGHOUT, SKIN IS PINK/WARM/DRY. DRESSING ON RT LEG IS C/D/I, CRYO WRAP IN PLACE ON TOP. FEET SCD'S IN PLACE. NEWLY PLACED PUREWICK BY SUPPORT ASSOCIATE, BARRIER TOWEL TO DRESSING IN PLACE TO PREVENT SATURATION FROM URINE. PT A&O X4. CALL LIGHT WITHIN REACH, NO FURTHER NEEDS AT THIS TIME.
--- NOTE | 2022-06-22 01:05 | NUR ---
PT RESTING W/EYES CLOSED. RESPIRATIONS ARE EVEN AND UNLABORED, NO SIGNS OF DISTRESS. CALL LIGHT WITHIN REACH.
--- NOTE | 2022-06-22 02:51 | NUR ---
PT RESTING W/EYES CLOSED. RESPIRATIONS ARE EVEN AND UNLABORED, NO SIGNS OF DISTRESS. CALL LIGHT WITHIN REACH.
--- NOTE | 2022-06-22 03:56 | NUR ---
IN PT ROOM D/T CALL LIGHT ANSWER FOR PRN PAIN MEDICATION. PRN OXY GIVEN, SEE EMAR. NO ACUTE CHANGES FROM PREVIOUS ASSESSMENT. PUREWICK STILL IN PLACE. DRESSING IS C/D/I. PT REPORTS NO NAUSEA, N/T, SOB, DIZZINESS AT THIS TIME. CRYO WRAP IN PLACE OVER DRESSING. ONQ PUMP IN PLACE. SCD'S IN PLACE. CALL LIGHT WITHIN REACH, NO FURTHER NEEDS AT THIS TIME.
--- NOTE | 2022-06-22 05:40 | NUR ---
PT RESTING W/EYES CLOSED. RESPIRATIONS ARE EVEN AND UNLABORED, NO SIGNS OF DISTRESS. CALL LIGHT WITHIN REACH. CRYO WRAP IN PLACE. PT APPEARS COMFORTABLE AT THIS TIME.
--- NOTE | 2022-06-22 07:30 | OR ---
[facility] [address] [place], [place] [address] Signed DATE OF OPERATION: 06/20/2022 SURGEON: Rolando Cisse MD PREOPERATIVE DIAGNOSIS: Patellar dislocation, left total knee. POSTOPERATIVE DIAGNOSIS: Patellar dislocation, left total knee. PROCEDURES PERFORMED: 1. Irrigation and debridement with poly exchange, left knee. 2. Repair of medial retinaculum, left total knee. SERVER ENGINEER: Gayle Bay PA-C. Gayle was present and critical for all portions of procedure. ANESTHESIA: Spinal. BLOOD LOSS: 75 mL. TOURNIQUET TIME: Zero. IMPLANTS: 13 mm polyethylene. BRIEF HISTORY: Krystal is a 72-year-old female who underwent primary total knee on Saturday. She had hallucinations and nausea and was kept overnight. The next morning she worked with physical therapy, however, she started to collapse and fell into a sitting position with her knee flexed. She was unable to do a straight leg raise after that. Radiographs revealed a dislocation of the patella. The wound itself was completely intact. Risks and benefits of return to the operating room today for repair of the knee retinaculum were discussed with her and she understood, wished to proceed. DESCRIPTION OF PROCEDURE: Electronically Signed By: ROLANDO CISSE MD 06/22/22 0730 PATIENT NAME: KRYSTAL RIGGS JANY OPERATIVE REPORT DATE OF : 48 REPORT #: [id number] PHYSICIAN: ROLANDO CISSE MD PCP: REYNA ESCOBEDO MD REPORT IS CONFIDENTIAL AND NOT TO BE RELEASED WITHOUT AUTHORIZATION [facility] [address] [facility] [place], [place] [address] Signed Once consent was obtained, she was taken to the operating room. After adequate anesthesia she was placed on operating table. All downside pressure points well padded. The left leg was prepped and draped in a standard sterile fashion. The prior LiquiBand was removed using the adhesive removers. The prior incision was then opened longitudinally and all old sutures were removed. The arthrotomy was completely disrupted from distal to the proximal end. The patella was stable. There was no loosening of the prostheses. The wound was debrided of all remaining suture remnants and a blood clot of which there was relatively little. The wound was then copiously irrigated with normal saline under pulse lavage. We did go ahead and remove the polyethylene so that we could debride and washing the back. The knee was then soaked in with IrriSept and the metal components were cleaned using a hydrogen peroxide soaked sponge. The 13 mm polyethylene was then snapped into position after trialing. The On-Q pain pump was replaced into the adductor canal from the suprapatellar pouch and the arthrotomy was closed using independent sutures with #2 FiberWire and #2 Vicryl. The subcutaneous tissue was closed with a #1 Stratafix, and skin with rajni. The wound was then dressed with an Acticoat 7 dressing and a bulky Macias. She tolerated the procedure well. All sponge, needle, and instrument counts were correct. Rolando Cisse MD BA/MODL /[id number] Copies: ~ Electronically Signed By: ROLANDO CISSE MD 06/22/22 0730 PATIENT NAME: KRYSTAL RIGGS JANY OPERATIVE REPORT DATE OF : 48 REPORT #: [id number] PHYSICIAN: ROLANDO CISSE MD PCP: REYNA ESCOBEDO MD REPORT IS CONFIDENTIAL AND NOT TO BE RELEASED WITHOUT AUTHORIZATION
--- NOTE | 2022-06-22 07:53 | NUR ---
recieved shift report. pt resting in bed. lease out worker at bedside. call light within reach
--- NOTE | 2022-06-22 09:01 | NUR ---
MORNING ASSESSMENT COMPLETE. PT SITTING IN RECLINER. DENIES PAIN AT THIS TIME. DRESSING C/D/I, ICE IN PLACE. DENIES NUMBNESS AND TINGLING. PEDAL PULSES STRONG. CALL LIGHT WITHIN REACH. DENIES FURTHER NEEDS.
--- NOTE | 2022-06-22 09:23 | NUR ---
PT IN CHAIR. PT REQ TO USE BSC. OTHER VENDING MACHINE HOST/HOSTESS NOTIFIED AND IN ROOM TO HELP. PT ASSISTED TO BSC FROM CHAIR 2 PA W FWW. PT UNDERSTANDS TO CALL WHEN DONE. PT CALL LIGHT ANSWERED AND PT IS READY TO GET OFF BSC. PT ASSISTED OFF BSC AND TO THE BED 2 PA W FWW. PT SCDS AND CRYO PUT ON. CRYO REFILLED W ICE AND WATER. L. ANKLE ELEVATED PER PT REQ. NO FURTHER NEEDS. CALL LIGHT WITHIN REACH.
--- NOTE | 2022-06-22 11:03 | NUR ---
PER AM MEETING PATIENT DOING WELL. NO CHANGES IN DC PLAN AT THIS TIME. UPDATES FAXED TO [facility].
--- NOTE | 2022-06-22 11:51 | NUR ---
pt complained of pain 01/14. oxycodone 5mg given an hour prior. pt requested the other 5mg of oxycodone to equal max dose. pain medication administered at this time. call light within reach
--- NOTE | 2022-06-22 12:01 | NUR ---
PT sitting up in bed. Alert and oriented. Talked of goals after discharge and importance of mindset as therapy will be necesary. PT has goal of [place] with her grandson again as that has been her routine. Expressed pleasure that physical therapist indicated that seemed a reasonable goal. Says she is looking forward to getting stronger and says she is willing to do the work necessary to get back home. Understands she needs to meet certain milestones to achieve that goal. Is grateful for support of friends and family. Prayed for healing, peace and strength.
--- NOTE | 2022-06-22 13:59 | NUR ---
[facility] TRANSPORT SCHEDULED FOR 10 AM 06/25/22.
--- NOTE | 2022-06-22 14:58 | NUR ---
PT UNABLE TO VOID. BLADDER SCANNED 606ML SHOWN. PT WILLING TO TRY AND URINATE.
--- NOTE | 2022-06-22 16:34 | NUR ---
AFTERNOON ASSESSMENT COMPLETE. PT UP IN CHAIR. TRANSFERRED TO BED 2PA, FWW W/O DIFFICULTY. REPORTS PAIN 3/10, AND FELT THE TRANSFER WENT MORE SMOOTHLY THAN OTHERS. RIGHT LEG DRESSING CLEAN AND INTACT. POLARCARE REFILLED WITH ICE WATER AND APPLIED TO RIGHT KNEE. LEGS ELEVATED WITH A PILLOW. PURWICK IN PLACE AND URINATED 100 ML AND X1 INCONT. CALL LIGHT WITHIN REACH. SCDS IN PLACE. DENIES FURTHER NEEDS AT THIS TIME.
--- NOTE | 2022-06-22 19:49 | NUR ---
REPORT RECEIVED FROM DAY SHIFT RN. PT LYING IN BED ALERT AND ORIENTED. DENIES NEEDS AT THIS TIME. WHITE BOARD UPDATED. CALL LIGHT IN REACH.
--- NOTE | 2022-06-22 21:10 | NUR ---
VS AND I&O COMPLETED. ICE REPLACED IN Host Committee DEVICE. ICE WATER PROVIDED. NO OTHER NEEDS. CALL LIGHT IN REACH.
--- NOTE | 2022-06-22 22:00 | NUR ---
URINE OUTPUT CHARTED, PT STATED SHE VOIDED TWICE WITH THE PUREWICK,
--- NOTE | 2022-06-22 22:04 | NUR ---
VOCAL MUSIC INSTRUCTOR TO ROOM FOR SCHEDULED MEDICATION ADMINISTRATION. PT REPORTS PAIN 08/17 TO R KNEE. REQUESTS PRN PAIN MEDCIATION. SEE EMAR. PT DENIES FURTHER NEEDS AT THIS TIME. CALL LIGHT IN REACH.
--- NOTE | 2022-06-22 22:15 | NUR ---
JOVANNAWINAZ REPLACED D/T UNCLEAR TIME OF PLACEMENT ON DAYSHIFT
--- NOTE | 2022-06-22 22:40 | NUR ---
EVENING ASSESSMENT COMPLETE. SCHEDULED MEDS ADMIN PER EMAR. PT REPORTS RIGHT KNEE PAIN MARINA. DRESSING TO RIGHT KNEE CDI. CMS INTACT. FRESH ICE IN CRYO. SCD'S/TEDS/HP IN PLACE. ON-Q PUMP IN PLACE. PT REPORTS NO BM SINCE 06/17. PRN FOR CONSTIPATION ADMIN PER EMAR. ENCOURAGED ENCOURAGED PO INTAKE. PT DENIES QUESTIONS OR CONCERNS. CALL LIGHT IN REACH.
--- NOTE | 2022-06-23 02:23 | NUR ---
PT RESTING IN BED WITH EYES CLOSED. RESPIRATIONS EVEN. CALL LIGHT IN REACH.
--- NOTE | 2022-06-23 05:28 | NUR ---
PT WAKENED FOR VS AND I&O. REPORTS SHE SLEPT WELL. PRN FOR PAIN ADMIN IN ANTICIPATION OF GETTING OUT OF BED FOR BREAKFAST. RIGHT LEG DRESSING CDI. SCD'S/TEDS/HP/CRYO IN PLACE. CMS INTACT. PT DENIES FURTHER NEEDS. CALL LIGHT IN REACH.
--- NOTE | 2022-06-23 07:45 | NUR ---
recieved shift report. pt in recliner. denies further needs. call light within reach.
--- NOTE | 2022-06-23 09:06 | NUR ---
MORNING ASSESSMENT COMPLETE. PT IN RECLINER. PAIN 3/10, TOLERABLE, INCREASES WITH MOVEMENT. DRESSING ON RIGHT LEG C/D/I. ON Q PUMP IN PLACE. PT HAS HEEL PROTECTORS ON. PEDAL PULSES STRONG. PT AWARE OF LENGTH OF TIME SINCE LAST BM, WILLING TO USE BSC. PURWICK IN PLACE. CALL LIGHT WITHIN REACH. DENIES FURTHER NEEDS.
--- NOTE | 2022-06-23 10:31 | NUR ---
PT RESTING IN BED, AWAKE. REQUESTED PRN PAIN MEDICATION. 10 PAIN LEVEL. MEDICATION ADMINISTERED (PER EMAR). ICE APPLIED. DENIES FURTHER NEEDS. CALL LIGHT WITHIN REACH.
--- NOTE | 2022-06-23 13:36 | NUR ---
PT IN BED. VITALS AND IS AND OS COMPLETE. CRYO MACHINE REFILLED. NEW PUREWICK PUT IN PLACE. NO FURTHER NEEDS. CALL LIGHT WITHIN REACH
--- NOTE | 2022-06-23 14:11 | NUR ---
MAGNESIUM COMPLETED. PT SALINE LOCKED.
--- NOTE | 2022-06-23 15:28 | NUR ---
AFTERNOON ASSESSMENT COMPLETE. DENIES PAIN AT THIS TIME. T-SCOPE BRACE IN PLACE. ICE APPLIED TO KNEE. Q PUMP IN PLACE. DENIES FURTHER NEEDS. CALL LIGHT WITHIN REACH.
--- NOTE | 2022-06-23 16:41 | NUR ---
CHANGED ON Q PUMP, CLAIRIFIED RATE WITH GLENROY, VERBAL ORDER TO CHANGE RATE TO 6 ML/HR.
--- NOTE | 2022-06-23 17:24 | NUR ---
pt up in chair eating dinner. denies pain at this time. call light within reach.
--- NOTE | 2022-06-23 18:16 | NUR ---
PT INCISION SITE COVERED WITH FOAM DRESSING. INTACT. SCANT AMOUNT OF SEROUSANG DRAINAGE.
--- NOTE | 2022-06-23 18:30 | NUR ---
PT TRANSFERRED TO CHAIR. 2PA, FWW. LEG BRACE ADJUSTED. PAIN RATED 3/10, DENIES PAIN MEDICATION AT THIS TIME. ICE APPLIED TO KNEE. CALL LIGHT WITHIN REACH.
--- NOTE | 2022-06-23 19:49 | NUR ---
REPORT RECEIVED FROM DAY SHIFT RN. PT LYING IN BED ALERT AND ORIENTED. DENIES NEEDS. WHITE BOARD UPDATED. CALL LIGHT IN REACH.
--- NOTE | 2022-06-23 21:00 | NUR ---
EVENING ASSESSMENT COMPLETE. SCHEDULED MEDS ADMIN PER EMAR. PT REPORTS RIGHT LEG PAIN 3/10 PRN FOR PAIN ADMIN PER EMAR. T-SCOPE BRACE AND FRESH ICE TO CRYO IN PLACE. SCD'S/TEDS IN PLACE. PT REFUSING HEEL PROTECTORS AT THIS TIME. ON-Q PUMP IN PLACE. CMS INTACT. PT ABLE TO REPOSITION SELF IN BED. DENIES QUESTIONS OR CONCERNS. CALL LIGHT IN REACH.
--- NOTE | 2022-06-23 22:30 | NUR ---
IV IN LEFT ARM NOTED TO BE LEAKING. DC'S WNL. TIP INTACT. STATION JAILER RN IN ROOM TO START 22 IN RIGHT FOREARM. PT MARINA WELL. IVF INFUSING WNL. PT REPOSITIONED WITH 2PA. NO FURTHER NEEDS.
--- NOTE | 2022-06-24 01:14 | NUR ---
PT RESTING IN BED WITH EYES CLOSED. RESPIRATIONS EVEN. CALL LIGHT IN REACH.
--- NOTE | 2022-06-24 05:52 | NUR ---
VS AND I&O COMPLETE. PT REPORTS PAIN DISTAL TO RIGHT KNEE. BRACE MOVED UP DURING THE NOC. BRACE REPOSITIONED SO HINGES ALIGN WITH KNEE. PT REPORTS RELIEF. DRESSING ON RIGHT KNEE INTACT WITH SMALL AMOUNT SHADOWING. ON-Q IN PLACE AT 6ML/HR. FRESH ICE TO CRYO. SCD'S AND TEDS IN PLACE. CMS INTACT. PT REPORTS PAIN IS TOLERABLE. DENIES FURTHER NEEDS. CALL LIGHT IN REACH.
--- NOTE | 2022-06-24 06:50 | NUR ---
PT REPORTS SHARP PAIN BELOW KNEE THAT TRAVELS TO BACK OF KNEE CAP. PRN FOR PAIN ADMIN. LEG REPOSITIONED. PT REPORTS SOME RELIEF. PT CALLS BACK TEARFUL RATING PAIN 10/10. ASSESSMENT TO RIGHT LEG UNCHANGED. T-SCOPE BRACE LOOSENED AND SCD'S REMOVED PER REQUEST. PT REPORTS RELIEF. ICE PACK PLACED TO RIGHT SUMNER AREA. PT REPORTS PAIN DOWN TO 3/10. PT AGREES TO WAIT FOR NEXT AVAILABLE PO PAIN ADMINISTRATION.
--- NOTE | 2022-06-24 07:49 | NUR ---
recieved shift report. pt laying in bed, awake. pt states pain 3/10, below the knee to the ankle. denies further needs. call light within reach.
--- NOTE | 2022-06-24 08:30 | NUR ---
MORNING ASSESSMENT COMPLETE. PAIN LEVEL 2/10. STATES SHE FEELS COMFORTABLE. PAIN OCCURS WITH MOVEMENT FROM THE RIGHT KNEE TO ANKLE. T-SCOPE BRACE IN PLACE. CRYO CUFF IN PLACE. ICE APPLIED TO LOWER LEG PER PT REQUEST. FOAM DRESSING, DRY AND INTACT WITH SMALL AMOUNT OF SHADOWING. CMS INTACT. ON Q PUMP INTACT. CALL LIGHT WITHIN REACH.
--- NOTE | 2022-06-24 10:47 | NUR ---
IN ROOM TO TAKE PUREWICK OUT AND CLEAN MARCELO AREA. PT GIVEN SUPPLIES TO PERFORM ORAL CARE PER PT REQ. CRYO MACHINE REFILLED. PT ON PHONE AND KNOWS TO CALL WHEN COMPLETE W ORAL CARE. CALL LIGHT WITHIN REACH.
--- NOTE | 2022-06-24 13:11 | NUR ---
PT IN CHAIR. BRIEF CHECKED. BRIEF CHANGED W 2 CNAS. PT ASSISTED TO BED W FWW 2 PA. PT REPOS IN BED FOR A NAP. NO FURTHER NEEDS. CALL LIGHT WITHIN REACH.
--- NOTE | 2022-06-24 13:11 | NUR ---
PT IN CHAIR. PT REQ TO USE BSC. PT ASSISTED TO BSC 2 PA W FWW. PT GIVEN CALL LIGHT AND WILL CALL WHEN DONE VOIDING. PT THEN ASSISTED BACK TO BED 2 PA W FWW. CRYO CHECKED AND OK. PT GIVEN BLANKETS. NO FURTHER NEEDS. CALL LIGHT WITHIN REACH
--- NOTE | 2022-06-24 14:57 | NUR ---
AFTERNOON ASSESSMENT COMPLETE. PT LAYING IN BED, AWAKE. DENIES PAIN, BUT "ACHES". T-SCOPE BRACE IN PLACE, CYRO ICE APPLIED TO THE KNEE. NO NEW CHANGES OF FOAM DRESSING. FEET SCD'S IN PLACE. CMS INTACT. DENIES FURTHER NEEDS. CALL LIGHT WITHIN REACH.
--- NOTE | 2022-06-24 17:40 | NUR ---
PT RESTING IN BED EATING DINNER. PAIN 1-210, TOLERABLE. ICE APPLIED. CALL LIGHT WITHIN REACH. DENIES FURTHER NEEDS.
--- NOTE | 2022-06-24 19:09 | NUR ---
ASSISTED PATIENT TO BSC USING FWW. PATIENT HAD BM AND IS NOW BACK IN BED RESTING. REFILLED CYRO. PATIENT DOES NOT NEED ANYTHING. CALL LIGHT IN REACH.
--- NOTE | 2022-06-24 22:00 | NUR ---
PT LYING IN BED AWAKE. EVENING ASSESSMENT COMPLETE. REPORTS RIGHT LEG PAIN TOLERABLE 08/17. T-SCOPE BRACE IN PLACE. BOTTOM STRAP OF BRACE UNCLAMPED FOR PT COMFORT. DRESSING INTACT WITH NO NEW DRAINAGE NOTED. SCD'S/HP/CRYO IN PLACE. ON-Q IN PLACE INFUSING AT 6 ML/HR. CMS INTACT. PT DENIES QUESTIONS OR CONCERNS. CALL LIGHT IN REACH.
--- NOTE | 2022-06-25 01:04 | NUR ---
PT RESTING IN BED WITH EYES CLOSED. RESPIRATIONS EVEN. CALL LIGHT IN REACH.
--- NOTE | 2022-06-25 04:32 | NUR ---
PT RESTING IN BED WITH EYES CLOSED. RESPIRATIONS EVEN. CALL LIGHT IN REACH.
--- NOTE | 2022-06-25 05:56 | NUR ---
PT CALL LIGHT ANSWERED. PT REQ TO USE BSC. PT ASSISTED TO BSC BY 2 PA W ARIANNEW. PT THEN GIVEN NEW BRIEF AND ASSISTED TO CHAIR. CRYO MACHINE REFILLED. ICE WATER AND COFFEE GIVEN. ORAL CARE SUPPLIES PUT ON TABLE BY PT. WARM BLANKET GIEVN NO FURTHER NEEDS. CALL LIGHT WITHIN REACH
--- NOTE | 2022-06-25 06:39 | NUR ---
PT UP TO BSC WITH FWW AND 1-2PA TO VOID. STAFF ASSIST WITH MARCELO CARE. PT TO RECLINER. LEGS ELEVATED. CRYO TO KNEE. T-SCOPE BRACE IN PLACE. PT REPORTS INCREASED PAIN WITH MOVEMENT. PRN FOR PAIN ADMIN PER EMAR. NO FURTHER NEEDS. CALL LIGHT IN REACH.
[2022-06-25] MEDS ORDERED: OXYCODONE HCL5 MG PO (07:09)
--- NOTE | 2022-06-25 07:38 | NUR ---
PT UP IN THE CHAIR ALERT AND TALKATIVE. DENIES ANY PAIN WHILE SITTING STILL, STATES SHE HURTS WHEN SHE MOVES. CALL LIGHT AND NEEDED ITEMS AT CHAIR SIDE. AGREES SHE IS READY FOR BREAKFAST.
--- NOTE | 2022-06-25 08:30 | NUR ---
ORDERS,RX, DC SUMMARY AND PASRR FAXED TO [facility]. ORIGINALS PLACE IN [place]OPE AT NURSES STATION FOR DISCHARGE.
--- NOTE | 2022-06-25 09:54 | NUR ---
PT EATS MORNING MEAL UP IN THE CHAIR, LEG BRACE IS ON, NEEDED ITEMS IN REACH. PT DENIES QUESTIONS R/T DC, EXPECT TRANSPORT AT 1000. PT AGREES HER PAIN IS WELL CONTROLLED AND SHE IS READY TO GO
== END 2022-06-25 09:50 | DRG 470 ==
LOC: DS 06:45 → MS 06:45 → DS 09:00 → MS 18:00 → DS 06-19 13:56 → MS 06-19 13:56
PROVIDERS: ADMIT Specialist; ATTEND Specialist
PROC: 3E0T3BZ Introduction of Anesthetic Agent into Peripheral Nerves and Plexi, Percutaneous Approach (ICD-10-PCS; 2022-06-18)
PROC: 3E0T33Z Introduction of Anti-inflammatory into Peripheral Nerves and Plexi, Percutaneous Approach (ICD-10-PCS; 2022-06-18)
PROC: 0SRC0JZ Replacement of Right Knee Joint with Synthetic Substitute, Open Approach (ICD-10-PCS; principal; 2022-06-18 09:00)
PROC: 0SPD09Z Removal of Liner from Left Knee Joint, Open Approach (ICD-10-PCS; 2022-06-20)
PROC: 0SUW09Z Supplement Left Knee Joint, Tibial Surface with Liner, Open Approach (ICD-10-PCS; 2022-06-20)
DX: M17.0 Bilateral primary osteoarthritis of knee (principal); T84.023A Instability of internal left knee prosthesis, initial encounter; R44.3 Hallucinations, unspecified; Z20.822 Contact with and (suspected) exposure to COVID-19; K74.3 Primary biliary cirrhosis; M85.80 Other specified disorders of bone density and structure, unspecified site; R11.0 Nausea; Z88.0 Allergy status to penicillin
CPT/HCPCS: 01400; 64447; 73562; 76942; 93005; 93010; 97110; 97116; 97162; 97166; 97530; A9270; C1713; C1776; C9113; J0131; J0690; J1100; J1170; J1885; J2001; J2250; J2405; J2704; J2765; J2795; J3010; J7030; J7040; J7121; U0003